=== PATIENT | female | born 1980 | race Caucasian/White ===

== ENCOUNTER 2022-01-02 03:06 | Emergency (ER) | payer SELFPAY ==
[~2022-01-02] VITALS: Ht 165.9 cm; Wt 86.2 kg
[~2022-01-02 03:06] MED LIST: AGM875T PO; CEFP500T4 PO; CIPRO; DICY20TA57; HYDR-34; HYOS0.1216 PO; PHEN-452 PO; PHEN200T27 PO; PRCD5U PO; PRM25T PO; SULF1TAB35 PO; SULF1TAB38 PO; TRAM-21 PO; TRAM50TA2; TRIA16.5 NS; [UNRECOGNIZED DRUG - OTHER]
[2022-01-02 03:50] LABS: BASOPHILS % (AUTO) 1 % (0-10); EOSINOPHILS # (AUTO) 0.1 10^3/uL (0.0-0.3); EOSINOPHILS % (AUTO) 2 % (0-10); HEMATOCRIT 38 % (35-52); HEMOGLOBIN 12.3 g/dL (11.5-16.0); LYMPHOCYTES # (AUTO) 3.2 10^3/uL (1.0-4.0); LYMPHOCYTES % (AUTO) 38 % (12-44); MEAN CORPUSCULAR HEMOGLOBIN 28 pg (25-34); MEAN CORPUSCULAR HGB CONC 33 g/dL (32-36); MEAN CORPUSCULAR VOLUME 88 fL (80-99); MEAN PLATELET VOLUME 9.2 fL (9.0-12.2); MONOCYTES # (AUTO) 0.7 10^3/uL (0.0-1.0); MONOCYTES % (AUTO) 9 % (0-12); NEUTROPHILS # (AUTO) 4.3 10^3/uL (1.8-7.8); NEUTROPHILS % (AUTO) 51 % (42-75); PLATELET COUNT 316 10^3/uL (130-400); WHITE BLOOD COUNT 8.5 10^3/uL (4.3-11.0)
[2022-01-02 03:52] LABS: ALBUMIN 4.2 GM/DL (3.2-4.5); CHLORIDE 106 MMOL/L (98-107); POTASSIUM 3.9 MMOL/L (3.6-5.0); SODIUM 139 MMOL/L (135-145)
[2022-01-02 03:53] LABS: AMYLASE 40 U/L (25-125); CALCIUM 9.2 MG/DL (8.5-10.1)
[2022-01-02 03:53] LABS: BILIRUBIN,URINE NEGATIVE (NEGATIVE); CLARITY,URINE CLEAR; COLOR,URINE YELLOW; GLUCOSE, URINE (UA) NEGATIVE (NEGATIVE); KETONES,URINE NEGATIVE (NEGATIVE); LEUKOCYTE ESTERASE ,URINE NEGATIVE (NEGATIVE); NITRITE,URINE NEGATIVE (NEGATIVE); PH,URINE 5.5 (5-9); PROTEIN,URINE NEGATIVE (NEGATIVE)
[2022-01-02 03:54] LABS: GLUCOSE 99 MG/DL (70-105); TOTAL PROTEIN 7.4 GM/DL (6.4-8.2)
[2022-01-02 03:55] LABS: CARBON DIOXIDE 20 MMOL/L (21-32)
[2022-01-02 03:56] LABS: BILIRUBIN,TOTAL 0.4 MG/DL (0.1-1.0)
[2022-01-02 03:58] LABS: ALKALINE PHOSPHATASE 66 U/L (40-136); CREATININE SERUM 0.67 MG/DL (0.60-1.30); GFR ESTIMATED 114
[2022-01-02 03:59] LABS: BUN/CREATININE RATIO 16
[2022-01-02 04:01] LABS: ALANINE AMINOTRANSFERASE 15 U/L (0-55); MAGNESIUM 1.9 MG/DL (1.6-2.4)
[2022-01-02 04:02] LABS: LIPASE 22 U/L (8-78)
[2022-01-02 04:03] LABS: AMPHETAMINE SCREEN, URINE NEGATIVE (NEGATIVE); BARBITURATE SCREEN URINE NEGATIVE (NEGATIVE); BENZODIAZEPINES SCREEN URINE NEGATIVE (NEGATIVE); CANNABINOID SCREEN, URINE POSITIVE (NEGATIVE); COCAINE SCREEN URINE NEGATIVE (NEGATIVE); METHADONE STAT NEGATIVE (NEGATIVE); METHAMPHETAMINE SCREEN URINE S NEGATIVE (NEGATIVE); OPIATE SCREEN URINE NEGATIVE (NEGATIVE); OXYCODONE STAT NEGATIVE (NEGATIVE); PROPOXYPHENE STAT NEGATIVE (NEGATIVE); TRICYCLIC ANTIDEPRESSANTS SCRE NEGATIVE (NEGATIVE)
[2022-01-02 04:04] LABS: BACTERIA,URINE NEGATIVE /HPF; RBC,URINE >100 /HPF
[2022-01-02] MEDS ORDERED: TRAM-42 PO (06:21)
[2022-01-02] MEDS ORDERED: NAPR500T8 PO (06:21)
--- NOTE | 2022-01-02 06:21 | ED Abdominal Pain ---
General Chief Complaint: Abdominal/GI Problems Stated Complaint: ABD PAIN,CRAMPS Nursing Triage Note: PT AMB TO RM 9 W C/O R SIDED ABD PAIN SX 0000 TONIGHT. 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 Source of Information: Patient Allergies and Home Medications Allergies Coded Allergies: morphine (Unverified Allergy, Mild, 04/23/09) NKANo Known Allergies (Verified Allergy, Unknown, 02/18/06) Patient Home Medication List Amoxicillin/Clavulanate K (Augmentin 875-125 Tablet) 1 Tab Tablet, 1 TAB PO BID, (Reported) Entered as Reported by: FANY MCGILL on 02/01/1255 Cefprozil (Cefzil) 500 Mg Tablet, 1 EACH PO BID Prescribed by: SHRUTHI FUENTES on 02/01/12149 Naproxen (Naproxen) 500 Mg Tablet.dr, 500 MG PO BID Prescribed by: SHRUTHI FUENTES on 01/02/22620 Phentermine Hcl (Phentermine Hcl) 30 Mg Capsule, 1 TAB PO DAILY, (Reported) Entered as Reported by: FANY MCGILL on 02/01/1255 Sulfamethoxazole/Trimethoprim (Bactrim DS) 1 Each Tablet, 1 TAB PO BID Prescribed by: SHRUTHI FUENTES on 04/29/152011 Tramadol HCl (Ultram) 50 Mg Tablet, 50 MG PO Q4H Prescribed by: SHRUTHI FUENTES on 01/02/22620 Triamcinolone Acetonide (Nasacort Aq) 16.5 Gm [place], 16.5 GM NS BID Prescribed by: SHRUTHI FUENTES on 02/01/12149 [Cipro] , (Reported) Entered as Reported by: FANY MCGILL on 02/01/1255 Past Scymbro-Wmkpjz-Olmjpf Hx Patient Social History Tobacco Use?: Yes Tobacco type used: Cigarettes Smoking Status: Current Everyday Smoker Use of E-Cig and/or Vaping dev: No Substance use?: Yes Substance type: Marijuana Additional substance use comme: "EDIBLES" Alcohol Use?: Yes Alcohol Frequency: Once in a while Immunizations Up To Date Tetanus Booster (TDap): Less than 5yrs Influenza Vaccine Up-to-Date: No; Not Current First/Initial COVID19 Vaccinat: NONE Second COVID19 Vaccination Kris: NONE Third COVID19 Vaccination Date: NONE COVID19 Vaccine Motel Front Desk Attendant: NONE Past Medical History Bladder Surgery, Gallbladder, Tubal Ligation Last Menstrual Period: Dec 28, 2021 Reproductive Disorders: Yes (MISCARRIAGE X1) Irritable Bowel Chronic Back Pain Physical Exam Vital Signs Vital Signs - First Documented 01/02/22 03:17 Temp 36.0 Pulse 87 Resp 20 B/P (MAP) 138/82 (100) Pulse Ox 97 O2 Delivery Room Air Capillary Refill : Less Than 3 Seconds Height/Weight/BMI Height: 5'1" Weight: 192lbs. oz. 87.008159ox; 31.00 BMI Method:Stated Progress/Results/Core Measures Results/Orders Lab Results Laboratory Tests Test 01/02/22 03:20 01/02/22 03:30 Range/Units Urine Color YELLOW Urine Clarity CLEAR Urine pH 5.5 5-9 Urine Specific [place] 1.025 H 1.016-1.022 Urine Protein NEGATIVE NEGATIVE Urine Glucose (UA) NEGATIVE NEGATIVE Urine Ketones NEGATIVE NEGATIVE Urine Nitrite NEGATIVE NEGATIVE Urine Bilirubin NEGATIVE NEGATIVE Urine Urobilinogen 0.2 < = 1.0 MG/DL Urine Leukocyte Esterase NEGATIVE NEGATIVE Urine RBC (Auto) 3+ H NEGATIVE Urine RBC >100 H /HPF Urine WBC NONE /HPF Urine Squamous Epithelial Cells 2-5 /HPF Urine Crystals NONE /LPF Urine Bacteria NEGATIVE /HPF Urine Casts NONE /LPF Urine Mucus MODERATE H /LPF Urine Culture Indicated NO Urine Opiates Screen NEGATIVE NEGATIVE Urine Oxycodone Screen NEGATIVE NEGATIVE Urine Methadone Screen NEGATIVE NEGATIVE Urine Propoxyphene Screen NEGATIVE NEGATIVE Urine Barbiturates Screen NEGATIVE NEGATIVE Ur Tricyclic Antidepressants Screen NEGATIVE NEGATIVE Urine Phencyclidine Screen NEGATIVE NEGATIVE Urine Amphetamines Screen NEGATIVE NEGATIVE Urine Methamphetamines Screen NEGATIVE NEGATIVE Urine Benzodiazepines Screen NEGATIVE NEGATIVE Urine Cocaine Screen NEGATIVE NEGATIVE Urine Cannabinoids Screen POSITIVE H NEGATIVE White Blood Count 8.5 4.3-11.0 10^3/uL Red Blood Count 4.33 3.80-5.11 10^6/uL Hemoglobin 12.3 11.5-16.0 g/dL Hematocrit 38 35-52 % Mean Corpuscular Volume 88 80-99 fL Mean Corpuscular Hemoglobin 28 25-34 pg Mean Corpuscular Hemoglobin Concent 33 32-36 g/dL Red Cell Distribution Width 13.7 10.0-14.5 % Platelet Count 316 130-400 10^3/uL Mean Platelet Volume 9.2 9.0-12.2 fL Immature Granulocyte % (Auto) 0 % Neutrophils (%) (Auto) 51 42-75 % Lymphocytes (%) (Auto) 38 12-44 % Monocytes (%) (Auto) 9 0-12 % Eosinophils (%) (Auto) 2 0-10 % Basophils (%) (Auto) 1 0-10 % Neutrophils # (Auto) 4.3 1.8-7.8 10^3/uL Lymphocytes # (Auto) 3.2 1.0-4.0 10^3/uL Monocytes # (Auto) 0.7 0.0-1.0 10^3/uL Eosinophils # (Auto) 0.1 0.0-0.3 10^3/uL Basophils # (Auto) 0.0 0.0-0.1 10^3/uL Immature Granulocyte # (Auto) 0.0 0.0-0.1 10^3/uL Sodium Level 139 135-145 MMOL/L Potassium Level 3.9 3.6-5.0 MMOL/L Chloride Level 106 98-107 MMOL/L Carbon Dioxide Level 20 L 21-32 MMOL/L Anion Gap 13 5-14 MMOL/L Blood Urea Nitrogen 11 7-18 MG/DL Creatinine 0.67 0.60-1.30 MG/DL Estimat Glomerular Filtration Rate 114 BUN/Creatinine Ratio 16 Glucose Level 99 70-105 MG/DL Calcium Level 9.2 8.5-10.1 MG/DL Corrected Calcium 9.0 8.5-10.1 MG/DL Magnesium Level 1.9 1.6-2.4 MG/DL Total Bilirubin 0.4 0.1-1.0 MG/DL Aspartate Amino Transf (AST/SGOT) 14 5-34 U/L Alanine Aminotransferase (ALT/SGPT) 15 0-55 U/L Alkaline Phosphatase 66 40-136 U/L Total Protein 7.4 6.4-8.2 GM/DL Albumin 4.2 3.2-4.5 GM/DL Amylase Level 40 25-125 U/L Lipase 22 8-78 U/L Serum Alcohol < 10 <10 MG/DL My Orders Orders - SHRUTHI FUENTES DO Ed Iv/Invasive Line Start (01/02/22 03:43) Urine Bedside (01/02/22 03:43) Monitor-Rhythm Ecg Trace Only (01/02/22 03:43) Alcohol (01/02/22 03:43) Amylase (01/02/22 03:43) Cbc With Automated Diff (01/02/22 03:43) Comprehensive Metabolic Panel (01/02/22 03:43) Drug Screen Stat (Urine) (01/02/22 03:43) Lipase (01/02/22 03:43) Magnesium (01/02/22 03:43) Ua Culture If Indicated (01/02/22 03:43) Ct Abd/Pelvis Wo(Kidney Stone) (01/02/22 03:51) Abdomen/Kub 1[place] (01/02/22 03:51) Vital Signs/I&O 01/02/22 03:17 Temp 36.0 Pulse 87 Resp 20 B/P (MAP) 138/82 (100) Pulse Ox 97 O2 Delivery Room Air Blood Pressure Mean: 100 Progress Progress Note : Progress Note SLEPT SOUNDLY FOR REMAINDER OF ER STAY Departure Impression Primary Impression: RLQ abdominal pain Additional Impressions: chronic dysmenorrhea chronic menorrhagia Uterine fibroid Disposition: HOME, SELF-CARE Condition: Stable Departure-Patient Inst. Decision time for Depature: 06:15 Referrals: [facility] (PCP/Family) Primary Care Physician Patient Instructions: Abdominal Pain, Adult ED, Heavy Periods (DC), Menstrual Cramps (DC), Uterine Fibroids (DC) Add. Discharge Instructions: HOME, REST LOTS OF CLEAR LIQUIDS FOLLOW UP WITH REACTOR KETTLE OPERATOR NEXT WEEK SCHEDULED All discharge instructions reviewed with patient and/or family. Voiced understanding. Scripts Naproxen (Naproxen) 500 Mg Tablet. 500 MG PO BID, #20 TAB Prov: SHRUTHI FUENTES DO 01/02/22 Tramadol HCl (Ultram) 50 Mg Tablet 50 MG PO Q4H for Pain, #20 TAB Prov: SHRUTHI FUENTES DO 01/02/22 SHRUTHI FUENTES DO Jan 02, 2022 06:21
--- NOTE | 2022-01-02 06:31 | Diagnostic Imaging Report ---
PROCEDURE: CT urinary tract, rule out kidney stone. TECHNIQUE: Multiple contiguous axial images were obtained through the abdomen and pelvis without the use of intravenous contrast. Auto Exposure Controls were utilized during the CT exam to meet ALARA standards for radiation dose reduction. INDICATION: Abdominal pain. FINDINGS: Lung bases are clear. The kidneys show no renal calculi. There is no hydronephrosis. Renal outlines are smooth with no perinephric fluid. The ureters are not dilated. The bladder is empty. No stones are seen within the bladder. Uterus is mildly enlarged. Very little stool seen in the colon though there is no evidence of obstructive process. No changes are seen to suggest inflammatory bowel disease. The appendix is normal. Stomach and small bowel are not distended. There is no intra-abdominal adenopathy. No free air or free fluid. Liver is normal. Gallbladder is absent. Bile ducts are not dilated. Pancreas and spleen are normal. The adrenal glands are not enlarged. No bony lesions. IMPRESSION: No acute intra-abdominal findings demonstrated. Uterus is mildly prominent. Would consider nonemergent pelvic ultrasound. The uterus does appear to have increased in size when compared with previous CT scan of 12/08/2010. Dictated by: Dictated on workstation # [id number]
[2022-01-02 06:32] VITALS: BP 123/76
--- NOTE | 2022-01-02 06:36 | Diagnostic Imaging Report ---
INDICATION: Abdominal pain. COMPARISON: CT scan of 01/02/2022. FINDINGS: KUB. Bowel gas pattern is normal. There is no evidence of bowel obstruction or constipation. There are surgical clips in the biliary fossa. Multiple phleboliths in the pelvis. No other pathologic calcifications noted. No bony abnormalities. IMPRESSION: No acute abnormalities. Dictated by: Dictated on workstation # [id number]
== END 2022-01-02 06:32 | disposition home or self-care (01) ==
LOC: EDUNIT# 03:06 → ER 03:10
DX: D25.9 Leiomyoma of uterus, unspecified (principal); N94.6 Dysmenorrhea, unspecified; N92.0 Excessive and frequent menstruation with regular cycle; F17.210 Nicotine dependence, cigarettes, uncomplicated
CPT/HCPCS: 74018; 74176; 80053; 80306; 81000; 82150; 83690; 83735; 84703; 85025; 93041; 99284; G0480; 36415; 80320

== ENCOUNTER 2022-04-25 23:43 | Observation (INO) | payer SELFPAY ==
[~2022-04-25] VITALS: Ht 154.9 cm; Wt 77.0 kg
[~2022-04-25 23:43] MED LIST changes: +NAPR500T8 PO; +TRAM-42 PO
--- NOTE | 2022-04-25 23:48 | ED General ---
General Stated Complaint: OVERDOSE History of Present Illness Date Seen by Provider: Apr 25, 2022 Time Seen by Provider: 23:48 Initial Comments 41-year-old female with PMH of depression/anxiety/prior suicide attempt in 2005, is brought in by EMS with complaints of overdosing on 40 tablets of Excedrin today 2199. Patient had suicidal ideation due to the extreme depression. Patient is not on medication for depression. Patient's was home at the time but did not know that she had done this until she told her much later. Patient is extremely anxious and depressed. Denies fever, chest pain, shortness of breath, palpitations, abdominal pain. Patient is vomiting. Patient received activated charcoal in the ambulance by EMS, after EMS called poison control. Allergies and Home Medications Allergies Coded Allergies: morphine (Unverified Allergy, Mild, 04/23/09) NKANo Known Allergies (Verified Allergy, Unknown, 02/18/06) Patient Home Medication List Home Medication List Reviewed: Yes Amoxicillin/Clavulanate K (Augmentin 875-125 Tablet) 1 Tab Tablet, 1 TAB PO BID, (Reported) Entered as Reported by: FANY MCGILL on 02/01/1255 Cefprozil (Cefzil) 500 Mg Tablet, 1 EACH PO BID Prescribed by: SHRUTHI FUENTES on 02/01/12149 Naproxen (Naproxen) 500 Mg Tablet.dr, 500 MG PO BID Prescribed by: SHRUTHI FUENTES on 01/02/22620 Phentermine Hcl (Phentermine Hcl) 30 Mg Capsule, 1 TAB PO DAILY, (Reported) Entered as Reported by: FANY MCGILL on 02/01/1255 Sulfamethoxazole/Trimethoprim (Bactrim DS) 1 Each Tablet, 1 TAB PO BID Prescribed by: SHRUTHI FUENTES on 04/29/152011 Tramadol HCl (Ultram) 50 Mg Tablet, 50 MG PO Q4H Prescribed by: SHRUTHI FUENTES on 01/02/22620 Triamcinolone Acetonide (Nasacort Aq) 16.5 Gm [place], 16.5 GM NS BID Prescribed by: SHRUTHI FUENTES on 02/01/12149 [Cipro] , (Reported) Entered as Reported by: FANY MCGILL on 02/01/1255 Review of Systems Review of Systems Constitutional: no symptoms reported EENTM: no symptoms reported Respiratory: no symptoms reported Cardiovascular: no symptoms reported Gastrointestinal: nausea, vomiting, other (overdose) Genitourinary: no symptoms reported Musculoskeletal: no symptoms reported Skin: no symptoms reported Psychiatric/Neurological: Anxiety, Depressed, Emotional Problems Hematologic/Lymphatic: No Symptoms Reported Immunological/Allergic: no symptoms reported Past Vcjkags-Inrtfa-Vvutiu Hx Immunizations Up To Date Tetanus Booster (TDap): Less than 5yrs First/Initial COVID19 Vaccinat: NONE Second COVID19 Vaccination Kris: NONE Third COVID19 Vaccination Date: NONE Past Medical History Surgeries: Yes (URETHRAL DILATION CHILD; CERVICAL CONIZATION) Bladder Surgery, Gallbladder, Tubal Ligation Respiratory: No Cardiac: No Neurological: No Reproductive Disorders: Yes (MISCARRIAGE X1) Genitourinary: No Gastrointestinal: Yes Irritable Bowel Musculoskeletal: Yes Chronic Back Pain Endocrine: No HEENT: No Cancer: No Psychosocial: No (CERVICAL DYSPLASIA--S/P CERVICAL CONIZATION) Physical Exam Vital Signs Vital Signs - First Documented 04/25/22 23:56 Temp 36.1 Pulse 117 Resp 26 B/P (MAP) 99/78 (85) Pulse Ox 96 O2 Delivery Room Air Capillary Refill : Height, Weight, BMI Height: 5'1" Weight: 192lbs. oz. 87.552101gx; 31.00 BMI Method:Stated General Appearance: Anxious, Moderate Distress Eyes: Bilateral Eye Normal Inspection, Bilateral Eye PERRL, Bilateral Eye EOMI HEENT: PERRL/EOMI, Normal ENT Inspection, Pharynx Normal Neck: Full Range of Motion, Normal Inspection, Non Tender, Supple Respiratory: Chest Non Tender, Lungs Clear, Normal Breath Sounds Cardiovascular: No Edema, No Murmur, Tachycardia (borderline) Gastrointestinal: Normal Bowel Sounds, Non Tender, Soft Back: Normal Inspection, No CVA Tenderness, No Vertebral Tenderness Extremity: Normal Inspection, Normal Range of Motion Neurologic/Psychiatric: Alert, Oriented x3, No Motor/Sensory Deficits, Normal Mood/Affect Skin: Normal Color Lymphatic: No Adenopathy Progress/Results/Core Measures Suspected Sepsis SIRS Temperature: Pulse: Respiratory Rate: Laboratory Tests 04/25/22 23:50: White Blood Count 8.9 04/26/22 02:08: White Blood Count 12.9H Blood Pressure / Mean: Laboratory Tests 04/25/22 23:50: Creatinine 0.82, Platelet Count 271, Total Bilirubin 0.3 04/26/22 02:08: Creatinine 0.69, Platelet Count 250 Results/Orders Lab Results Laboratory Tests Test 04/25/22 23:50 04/26/22 00:49 04/26/22 02:08 Range/Units White Blood Count 8.9 12.9 H 4.3-11.0 10^3/uL Red Blood Count 4.58 4.13 3.80-5.11 10^6/uL Hemoglobin 11.2 L 10.4 L 11.5-16.0 g/dL Hematocrit 36 33 L 35-52 % Mean Corpuscular Volume 80 79 L 80-99 fL Mean Corpuscular Hemoglobin 25 25 25-34 pg Mean Corpuscular Hemoglobin Concent 31 L 32 32-36 g/dL Red Cell Distribution Width 17.2 H 17.0 H 10.0-14.5 % Platelet Count 271 250 130-400 10^3/uL Mean Platelet Volume 9.1 9.2 9.0-12.2 fL Immature Granulocyte % (Auto) 0 0 % Neutrophils (%) (Auto) 70 89 H 42-75 % Lymphocytes (%) (Auto) 21 6 L 12-44 % Monocytes (%) (Auto) 9 5 0-12 % Eosinophils (%) (Auto) 1 0 0-10 % Basophils (%) (Auto) 0 0 0-10 % Neutrophils # (Auto) 6.2 11.5 H 1.8-7.8 10^3/uL Lymphocytes # (Auto) 1.9 0.7 L 1.0-4.0 10^3/uL Monocytes # (Auto) 0.8 0.6 0.0-1.0 10^3/uL Eosinophils # (Auto) 0.1 0.0 0.0-0.3 10^3/uL Basophils # (Auto) 0.0 0.0 0.0-0.1 10^3/uL Immature Granulocyte # (Auto) 0.0 0.1 0.0-0.1 10^3/uL Sodium Level 140 141 135-145 MMOL/L Potassium Level 3.3 L 3.7 3.6-5.0 MMOL/L Chloride Level 107 112 H 98-107 MMOL/L Carbon Dioxide Level 15 L 17 L 21-32 MMOL/L Anion Gap 18 H 12 5-14 MMOL/L Blood Urea Nitrogen 8 7 7-18 MG/DL Creatinine 0.82 0.69 0.60-1.30 MG/DL Estimat Glomerular Filtration Rate 93 113 BUN/Creatinine Ratio 10 10 Glucose Level 187 H 103 70-105 MG/DL Calcium Level 9.2 8.3 L 8.5-10.1 MG/DL Corrected Calcium 9.0 8.5-10.1 MG/DL Magnesium Level 1.9 1.6-2.4 MG/DL Total Bilirubin 0.3 0.1-1.0 MG/DL Aspartate Amino Transf (AST/SGOT) 10 5-34 U/L Alanine Aminotransferase (ALT/SGPT) 14 0-55 U/L Alkaline Phosphatase 54 40-136 U/L Total Protein 7.1 6.4-8.2 GM/DL Albumin 4.3 3.2-4.5 GM/DL Serum Test, Qualitative NEGATIVE NEGATIVE Salicylates Level 33.1 *H 31.7 *H 5.0-20.0 MG/DL Acetaminophen Level 101 *H 67 #*H 10-30 UG/ML Serum Alcohol < 10 <10 MG/DL Urine Color YELLOW Urine Clarity CLEAR Urine pH 6.0 5-9 Urine Specific [place] >=1.030 1.016-1.022 Urine Protein TRACE H NEGATIVE Urine Glucose (UA) 1+ H NEGATIVE Urine Ketones 1+ H NEGATIVE Urine Nitrite NEGATIVE NEGATIVE Urine Bilirubin NEGATIVE NEGATIVE Urine Urobilinogen 0.2 < = 1.0 MG/DL Urine Leukocyte Esterase NEGATIVE NEGATIVE Urine RBC (Auto) NEGATIVE NEGATIVE Urine RBC NONE /HPF Urine WBC 0-2 /HPF Urine Squamous Epithelial Cells 2-5 /HPF Urine Crystals NONE /LPF Urine Bacteria NEGATIVE /HPF Urine Casts PRESENT /LPF Urine Hyaline Casts 0-2 H /LPF Urine Mucus NEGATIVE /LPF Urine Culture Indicated NO Urine Opiates Screen NEGATIVE NEGATIVE Urine Oxycodone Screen NEGATIVE NEGATIVE Urine Methadone Screen NEGATIVE NEGATIVE Urine Propoxyphene Screen NEGATIVE NEGATIVE Urine Barbiturates Screen NEGATIVE NEGATIVE Ur Tricyclic Antidepressants Screen NEGATIVE NEGATIVE Urine Phencyclidine Screen NEGATIVE NEGATIVE Urine Amphetamines Screen NEGATIVE NEGATIVE Urine Methamphetamines Screen NEGATIVE NEGATIVE Urine Benzodiazepines Screen NEGATIVE NEGATIVE Urine Cocaine Screen NEGATIVE NEGATIVE Urine Cannabinoids Screen POSITIVE H NEGATIVE Neutrophils % (Manual) 89 % Lymphocytes % (Manual) 6 % Monocytes % (Manual) 5 % Microcytosis SLIGHT My Orders Orders - KAREN STEVE MD Ekg Tracing (04/25/22 23:51) Ed Iv/Invasive Line Start (04/25/22 23:54) Ns Iv 1000 Ml (Sodium Chloride 0.9%) (04/26/22 00:00) Acetaminophen (04/25/22 23:54) Alcohol (04/25/22 23:54) Cbc With Automated Diff (04/25/22 23:54) Comprehensive Metabolic Panel (04/25/22 23:54) Drug Screen Stat (Urine) (04/25/22 23:54) Hcg,Qualitative Serum (04/25/22 23:54) Magnesium (04/25/22 23:54) Salicylate (04/25/22 23:54) Ua Culture If Indicated (04/25/22 23:54) Chest 1 View, Ap/Pa Only (04/26/22 00:01) Potassium Cl 10meq/50ml Ivpb (Kcl 10 Meq (04/26/22 00:24) Ondansetron Injection (Zofran Injectio (04/26/22 01:45) Basic Metabolic Panel (04/26/22 01:57) Cbc With Automated Diff (04/26/22 01:57) Salicylate (04/26/22 01:57) Acetaminophen (04/26/22 01:57) Manual Differential (04/26/22 02:08) Protime With Inr (04/26/22 03:09) Ed Iv/Invasive Line Start (04/26/22 03:10) Ns Iv 1000 Ml (Sodium Chloride 0.9%) (04/26/22 03:10) Medications Given in ED Current Medications Medications Dose Ordered Sig/Jeff Route Start Time Stop Time Status Last Admin Dose Admin Ondansetron HCl 4 mg ONCE ONCE IVP 04/26/22 01:45 04/26/22 01:46 DC 04/26/22 01:44 4 MG Vital Signs/I&O 04/25/22 04/26/22 04/26/22 23:56 02:10 03:07 Temp 36.1 36.7 Pulse 117 76 72 Resp 26 18 19 B/P (MAP) 99/78 (85) 96/67 97/60 Pulse Ox 96 98 98 O2 Delivery Room Air Room Air 04/26/22 00:00 Intake Total 500 ml Balance 500 ml Capillary Refill : Progress Note : Progress Note 1. DRUG OVERDOSE/ SUICIDAL IDEATION: - Pt took 40 tabs of Excedrin at 22:00 ( Acetaminophen 250mg/ ASA 250mg/ Caffeine 65mg) - EMS called Poison Control and Poison Control has been contacting ER every hour - Activated charcoal given in ambulance as per Poison control advice - ABG x2 - EKH normal - AST/ ALT levels normal - PT & INR: - Salicylate level improved from 33.1 to 31.7 ( Bicarb drip only needed if Salicylate level goes above 35) - Acetaminophen level improved from 101 to 67 - UDS is also positive for marijuana - NS IVF bolus x1 , then 2nd bag contuous at 200/hr - Discussed with hospitalist, Dr Miller, and will admit to observation in ICU, and obtain e-ICU consult 2. MILD HYPOKALEMIA: - s. K+ is 3.3, iv potassium is given 20mEq, and level improved to 3.7 ECG Initial ECG Impression Date: Apr 25, 2022 Initial ECG Impression Time: 23:55 Initial ECG Rate: 102 Initial ECG Rhythm: S.Tach Initial ECG Intervals: Normal Initial ECG Comparisson: No Previous ECG Available Departure Communication (Admissions) Time/Spoke to Admitting Phy: 03:[address] Miller, will admit for Observation to ICU Impression Primary Impression: Drug overdose Qualified Codes: T50.902A - Poisoning by unspecified drugs, medicaments and biological substances, intentional self-harm, initial encounter Additional Impressions: Suicidal ideation Hypokalemia Disposition: 30 STILL A PATIENT Condition: Improved Admissions Decision to Admit Reason: Admit from ER (General) Decision to Admit/Date: Apr 26, 2022 Time/Decision to Admit Time: 02:45 Departure-Patient Inst. Referrals: [facility] (PCP/Family) Primary Care Physician KAREN STEVE MD Apr 25, 2022 23:48
[2022-04-26] MEDS ORDERED: NS IV 1000 ML 1,000 ML IV SCH
[2022-04-26 00:10] LABS: BASOPHILS % (AUTO) 0 % (0-10); EOSINOPHILS # (AUTO) 0.1 10^3/uL (0.0-0.3); EOSINOPHILS % (AUTO) 1 % (0-10); HEMATOCRIT 36 % (35-52); HEMOGLOBIN 11.2 g/dL (11.5-16.0); LYMPHOCYTES # (AUTO) 1.9 10^3/uL (1.0-4.0); LYMPHOCYTES % (AUTO) 21 % (12-44); MEAN CORPUSCULAR HEMOGLOBIN 25 pg (25-34); MEAN CORPUSCULAR HGB CONC 31 g/dL (32-36); MEAN CORPUSCULAR VOLUME 80 fL (80-99); MEAN PLATELET VOLUME 9.1 fL (9.0-12.2); MONOCYTES # (AUTO) 0.8 10^3/uL (0.0-1.0); MONOCYTES % (AUTO) 9 % (0-12); NEUTROPHILS # (AUTO) 6.2 10^3/uL (1.8-7.8); NEUTROPHILS % (AUTO) 70 % (42-75); PLATELET COUNT 271 10^3/uL (130-400); WHITE BLOOD COUNT 8.9 10^3/uL (4.3-11.0)
[2022-04-26 00:22] LABS: ALBUMIN 4.3 GM/DL (3.2-4.5); CHLORIDE 107 MMOL/L (98-107); POTASSIUM 3.3 MMOL/L (3.6-5.0); SODIUM 140 MMOL/L (135-145)
[2022-04-26 00:24] LABS: CALCIUM 9.2 MG/DL (8.5-10.1)
[2022-04-26] MEDS ORDERED: POTASSIUM CL 10MEQ/50ML IVPB 50 ML IV STA (00:24)
[2022-04-26 00:25] LABS: GLUCOSE 187 MG/DL (70-105); TOTAL PROTEIN 7.1 GM/DL (6.4-8.2)
[2022-04-26 00:26] LABS: CARBON DIOXIDE 15 MMOL/L (21-32)
[2022-04-26 00:27] LABS: BILIRUBIN,TOTAL 0.3 MG/DL (0.1-1.0)
[2022-04-26 00:29] LABS: ALKALINE PHOSPHATASE 54 U/L (40-136); CREATININE SERUM 0.82 MG/DL (0.60-1.30); GFR ESTIMATED 93
[2022-04-26 00:30] LABS: BUN/CREATININE RATIO 10
[2022-04-26 00:32] LABS: ALANINE AMINOTRANSFERASE 14 U/L (0-55); MAGNESIUM 1.9 MG/DL (1.6-2.4)
[2022-04-26 00:35] LABS: ACETAMINOPHEN 101 UG/ML (10-30); SALICYLATE 33.1 MG/DL (5.0-20.0)
[2022-04-26 00:57] LABS: BILIRUBIN,URINE NEGATIVE (NEGATIVE); CLARITY,URINE CLEAR; COLOR,URINE YELLOW; GLUCOSE, URINE (UA) 1+ (NEGATIVE); KETONES,URINE 1+ (NEGATIVE); LEUKOCYTE ESTERASE ,URINE NEGATIVE (NEGATIVE); NITRITE,URINE NEGATIVE (NEGATIVE); PROTEIN,URINE TRACE (NEGATIVE)
[2022-04-26 01:08] LABS: BACTERIA,URINE NEGATIVE /HPF; HYALINE CASTS, URINE 0-2 /LPF; WBC,URINE 0-2 /HPF
[2022-04-26 01:27] LABS: AMPHETAMINE SCREEN, URINE NEGATIVE (NEGATIVE); BARBITURATE SCREEN URINE NEGATIVE (NEGATIVE); BENZODIAZEPINES SCREEN URINE NEGATIVE (NEGATIVE); CANNABINOID SCREEN, URINE POSITIVE (NEGATIVE); COCAINE SCREEN URINE NEGATIVE (NEGATIVE); METHADONE STAT NEGATIVE (NEGATIVE); OPIATE SCREEN URINE NEGATIVE (NEGATIVE); OXYCODONE STAT NEGATIVE (NEGATIVE); PROPOXYPHENE STAT NEGATIVE (NEGATIVE); TRICYCLIC ANTIDEPRESSANTS SCRE NEGATIVE (NEGATIVE)
[2022-04-26] MEDS ORDERED: ONDANSETRON 4 MG/2 ML (SDV) Z0FRAN IVP ONE (01:45)
[2022-04-26 02:22] LABS: BASOPHILS % (AUTO) 0 % (0-10); EOSINOPHILS % (AUTO) 0 % (0-10); HEMATOCRIT 33 % (35-52); HEMOGLOBIN 10.4 g/dL (11.5-16.0); LYMPHOCYTES # (AUTO) 0.7 10^3/uL (1.0-4.0); LYMPHOCYTES % (AUTO) 6 % (12-44); MEAN CORPUSCULAR HEMOGLOBIN 25 pg (25-34); MEAN CORPUSCULAR HGB CONC 32 g/dL (32-36); MEAN CORPUSCULAR VOLUME 79 fL (80-99); MEAN PLATELET VOLUME 9.2 fL (9.0-12.2); MONOCYTES # (AUTO) 0.6 10^3/uL (0.0-1.0); MONOCYTES % (AUTO) 5 % (0-12); NEUTROPHILS # (AUTO) 11.5 10^3/uL (1.8-7.8); NEUTROPHILS % (AUTO) 89 % (42-75); PLATELET COUNT 250 10^3/uL (130-400); WHITE BLOOD COUNT 12.9 10^3/uL (4.3-11.0)
[2022-04-26 02:29] LABS: POTASSIUM 3.7 MMOL/L (3.6-5.0)
[2022-04-26 02:30] LABS: CALCIUM 8.3 MG/DL (8.5-10.1)
[2022-04-26 02:35] LABS: CREATININE SERUM 0.69 MG/DL (0.60-1.30)
[2022-04-26 02:40] LABS: SALICYLATE 31.7 MG/DL (5.0-20.0)
[2022-04-26 03:10] LABS: LYMPHOCYTES % (MANUAL) 6 %; MICROCYTOSIS SLIGHT; MONOCYTES % (MANUAL) 5 %; NEUTROPHILS % (MANUAL) 89 %
[2022-04-26] MEDS ORDERED: NS IV 1000 ML 1,000 ML IV STA (03:10)
[2022-04-26 05:08] VITALS: BP 111/65
--- NOTE | 2022-04-26 05:27 | Tele-ICU Consult ---
History of Present Illness History of Present Illness Date Seen by Provider: Apr 26, 2022 Time Seen by Provider: 05:16 History of Present Illness 41 yo F with Hx of depression, took Excedrinin, "after a few hours" came to ED, Had been given activated charcoal by EMT First ASA level 33, two hours later 31, First Tylenol level 101, two hours later 67, Poison control did not recommend NAC. First ABG 7.36//85 HCO3 16, second ABG 2 hours later 7.43//102 Pt is awake and alert, not working hard to breathe,appears depressed Allergies and Home Medications Allergies Coded Allergies: morphine (Unverified Allergy, Mild, 04/23/09) NKANo Known Allergies (Verified Allergy, Unknown, 02/18/06) Home Medications Amoxicillin/Clavulanate K 1 Tab Tablet, 1 TAB PO BID, (Reported) Cefprozil 500 Mg Tablet, 1 EACH PO BID FOR INFECTION Prescribed by: SHRUTHI FUENTES on 02/01/12149 Naproxen 500 Mg Tablet.dr, 500 MG PO BID Prescribed by: SHRUTHI FUENTES on 01/02/22620 Phentermine Hcl 30 Mg Capsule, 1 TAB PO DAILY, (Reported) Sulfamethoxazole/Trimethoprim 1 Each Tablet, 1 TAB PO BID FOR INFECTION Prescribed by: SHRUTHI FUENTES on 04/29/152011 Tramadol HCl 50 Mg Tablet, 50 MG PO Q4H Prescribed by: SHRUTHI FUENTES on 01/02/22620 Triamcinolone Acetonide 16.5 Gm [place], 16.5 GM NS BID FOR SINUSES Prescribed by: SHRUTHI FUENTES on 02/01/12149 Past Medical/Social/Family Hx Patient Social History Tobacco Use?: Yes Tobacco type used: Cigarettes Smoking Status: Current Everyday Smoker Substance use?: No Alcohol Use?: No Pt stated abuse/neglect: No Immunizations Up To Date Influenza Vaccine Up-to-Date: No; Not Current First/Initial COVID19 Vaccinat: NONE Second COVID19 Vaccination Kris: NONE Tetanus Booster (TDap): Unknown Current Status status: No status: No Advance Directives: No Primary Language: Hungarian Preferred Spoken Language: Hungarian Review of Systems Constitutional: see HPI EENTM: see HPI Respiratory: see HPI Cardiovascular: see HPI Gastrointestinal: see HPI Genitourinary: see HPI Musculoskeletal: see HPI Skin: see HPI Psychiatric/Neurological: See HPI Focused Exam Height, Weight, BMI Height: 5'1" Weight: 192lbs. oz. 87.599422is; 31.00 BMI Method:Stated Exam Exam Patient acknowledged, consented, and participated in this virtual visit which was conducted using real time audio/video Vital Signs Date Time Temp Pulse Resp B/P (MAP) Pulse Ox O2 Delivery O2 Flow Rate FiO2 04/26/22 04:29 70 04/26/22 04:28 36.5 91 18 111/65 96 Room Air 04/26/22 03:07 72 19 97/60 98 04/26/22 02:10 36.7 76 18 96/67 98 Room Air 04/25/22 23:56 36.1 117 26 99/78 (85) 96 Room Air I & O 04/26/22 07:00 Intake Total 550 ml Balance 550 ml Height & Weight Height: 5'1" Weight: 192lbs. oz. 87.728078ud; 31.00 BMI Method:Stated General Appearance: Anxious, Moderate Distress HEENT: PERRL/EOMI, Normal ENT Inspection, Pharynx Normal Neck: Full Range of Motion, Normal Inspection, Non Tender, Supple Respiratory: Chest Non Tender, Lungs Clear, Normal Breath Sounds Cardiovascular: No Edema, No Murmur, Tachycardia (borderline) Capillary Refill: Less Than 3 Seconds Gastrointestinal: normal bowel sounds, non tender, soft Extremity: Normal Inspection, Normal Range of Motion Neurologic/Psychiatric: Alert, Oriented x3, No Motor/Sensory Deficits, Normal Mood/Affect Skin: Normal Color Lymphatic: No Adenopathy Results Lab Laboratory Tests 04/25/22 23:50 04/26/22 02:08 Assessment/Plan Assessment/Plan Suicide attempt with ASA, Tylenol, levels not high enough to justify IV NaHCO3 or NAC will continue IVF should have psych see Critical Care: Critically Ill Patient Time spent with patient (mins): 30 LOR JOHNSON MD Apr 26, 2022 05:27
[2022-04-26] MEDS ORDERED: RT-ALBUTEROL/IPRATROPIUM 3 ML (DUONEB) VIAL INH PRN (05:30)
[2022-04-26] MEDS: ONDANSETRON 4 MG/2 ML (SDV) Z0FRAN IV PRN ×2 (05:30→09:20)
--- NOTE | 2022-04-26 06:17 | History & Physical-Hospitalist ---
History of Present Illness HPI/Chief Complaint CC: Overdose on Excedrin HPI: This is a 41yoF who presented to the ER after overdosing on 30 Excedrin pills. Salicylate and Acetaminophen levels monitored per Poison Control with IV fluids and ICU monitoring. Those levels are decreasing and liver enzymes remain stable. Source: patient Exam Limitations: no limitations Date Seen 04/26/22 Time Seen by a Provider: 10:30 Attending Physician [place] [facility] PCP Admitting Physician: Selma Miller DO Attending Physician: Selma Miller DO Referring Physician Date of Admission Apr 26, 2022 at 03:21 Home Medications & Allergies Home Medications Reviewed patient Home Medication Reconciliation performed by pharmacy medication reconciliations compliance technician and/or nursing. Patients Allergies have been reviewed. Allergies Allergies Coded Allergies morphine (Unverified Allergy, Mild, 04/23/09) Past Qtvlwud-Jnigsv-Aliwzo Hx Patient Social History Marrital Status: cohabiting Tobacco Use?: Yes Tobacco type used: Cigarettes Smoking Status: Current Everyday Smoker Substance use?: No Alcohol Use?: No Pt feels they are or have been: No Immunizations Up To Date First/Initial COVID19 Vaccinat: NONE Second COVID19 Vaccination Kris: NONE Tetanus Booster (TDap): Unknown Current Status status: No status: No Advance Directives: No Primary Language: Pakistani Preferred Spoken Language: Pakistani Past Medical History Surgeries: Bladder Surgery, Gallbladder, Tubal Ligation Irritable Bowel Chronic Back Pain Depression Review of Systems Constitutional: see HPI, malaise, weakness EENTM: no symptoms reported Respiratory: no symptoms reported Cardiovascular: no symptoms reported Gastrointestinal: nausea, vomiting Musculoskeletal: no symptoms reported Skin: no symptoms reported Psychiatric/Neurological: No Symptoms Reported All Other Systems Reviewed Negative Unless Noted: Yes Physical Exam Physical Exam Vital Signs Vital Signs - First Documented 04/25/22 04/26/22 23:56 05:08 Temp 36.1 Pulse 117 Resp 26 B/P (MAP) 99/78 (85) Pulse Ox 96 O2 Delivery Room Air FiO2 21 Capillary Refill : Less Than 3 Seconds Height, Weight, BMI Height: 5'1" Weight: 192lbs. oz. 87.701189ci; 32.29 BMI Method:Stated General Appearance: No Apparent Distress, Chronically ill Eyes: Right Eye Normal Inspection, Right Eye PERRL HEENT: PERRL/EOMI, Normal ENT Inspection, Pharynx Normal, Moist Mucous Membranes Neck: Full Range of Motion, Normal Inspection, Non Tender Respiratory: Chest Non Tender, Lungs Clear, Normal Breath Sounds, No Accessory Muscle Use, No Respiratory Distress Cardiovascular: Regular Rate, Rhythm, No Edema, No Gallop, No JVD, No Murmur, Normal Peripheral Pulses Gastrointestinal: Normal Bowel Sounds, No Organomegaly, No Pulsatile Mass, Non Tender, Soft Back: Normal Inspection, No CVA Tenderness, No Vertebral Tenderness Extremity: Normal Capillary Refill, Normal Inspection, Normal Range of Motion, Non Tender, No Calf Tenderness, No Pedal Edema Neurologic/Psychiatric: Alert, Oriented x3, No Motor/Sensory Deficits, Normal Mood/Affect Skin: Normal Color, Warm/Dry Lymphatic: No Adenopathy Results Results/Procedures Labs Laboratory Tests 04/25/22 23:50 04/26/22 02:08 04/26/22 05:37 Patient resulted labs reviewed. Assessment/Plan Admission Diagnosis Assessment: OD on Excedrin (APAP/ASA) Plan: Appreciate EICU and Poison Control Admission Status: Observation Diagnosis/Problems Diagnosis/Problems (1) Drug overdose Status: Acute Qualifiers: Encounter type: initial encounter Injury intent: intentional self-harm Qualified Codes: T50.902A - Poisoning by unspecified drugs, medicaments and biological substances, intentional self-harm, initial encounter (2) Suicidal ideation Status: Acute SELMA MILLER DO Apr 26, 2022 06:17
--- NOTE | 2022-04-26 06:55 | Diagnostic Imaging Report ---
INDICATION: Overdose Frontal chest obtained at 1241 a.m. Heart and mediastinal silhouette are normal in appearance. The lungs are clear. There is no pneumothorax or pleural fluid IMPRESSION: Negative chest. Dictated by: Dictated on workstation # [id number]
[2022-04-26 07:19] LABS: POTASSIUM 3.5 MMOL/L (3.6-5.0)
[2022-04-26 07:21] LABS: CALCIUM 8.7 MG/DL (8.5-10.1)
[2022-04-26 07:22] LABS: TOTAL PROTEIN 6.8 GM/DL (6.4-8.2)
[2022-04-26 07:24] LABS: BILIRUBIN,TOTAL 0.2 MG/DL (0.1-1.0)
[2022-04-26 07:26] LABS: CREATININE SERUM 0.68 MG/DL (0.60-1.30)
[2022-04-26 07:28] LABS: SALICYLATE 29.7 MG/DL (5.0-20.0)
[2022-04-26] MEDS: POTASSIUM CL 10MEQ/50ML IVPB 50 ML IV SCH ×2 (08:36→09:51)
[2022-04-26] MEDS ORDERED: HYDROmorphone 2 MG/ML VIAL (DILAUDID) IVP PRN (10:15)
[2022-04-26] MEDS ORDERED: PROMETHAZINE INJ 25 MG/ML (PHENERGAN) AMP IM PRN (10:45)
[2022-04-26] MEDS: NS IV 1000 ML 1,000 ML IV SCH ×5 (11:25→23:52)
[2022-04-26] MEDS ORDERED: CATHETER FLUSH 10 ML SYR IVP PRN (18:00)
[2022-04-27 04:37] LABS: BASOPHILS # (AUTO) 0.1 10^3/uL (0.0-0.1); BASOPHILS % (AUTO) 1 % (0-10); EOSINOPHILS # (AUTO) 0.1 10^3/uL (0.0-0.3); EOSINOPHILS % (AUTO) 2 % (0-10); HEMATOCRIT 30 % (35-52); HEMOGLOBIN 9.2 g/dL (11.5-16.0); LYMPHOCYTES # (AUTO) 2.9 10^3/uL (1.0-4.0); LYMPHOCYTES % (AUTO) 49 % (12-44); MEAN CORPUSCULAR HEMOGLOBIN 25 pg (25-34); MEAN CORPUSCULAR HGB CONC 31 g/dL (32-36); MEAN CORPUSCULAR VOLUME 81 fL (80-99); MEAN PLATELET VOLUME 9.4 fL (9.0-12.2); MONOCYTES # (AUTO) 0.6 10^3/uL (0.0-1.0); MONOCYTES % (AUTO) 10 % (0-12); NEUTROPHILS # (AUTO) 2.3 10^3/uL (1.8-7.8); NEUTROPHILS % (AUTO) 38 % (42-75); PLATELET COUNT 191 10^3/uL (130-400)
[2022-04-27 04:59] LABS: PHOSPHORUS 2.8 MG/DL (2.3-4.7)
[2022-04-27] MEDS: NS IV 1000 ML 1,000 ML IV SCH (05:00)
[2022-04-27 05:01] LABS: MAGNESIUM 1.8 MG/DL (1.6-2.4)
[2022-04-27 05:26] LABS: POTASSIUM 3.4 MMOL/L (3.6-5.0)
[2022-04-27 05:31] LABS: CREATININE SERUM 0.62 MG/DL (0.60-1.30)
[2022-04-27] MEDS ORDERED: MAGNESIUM 1 GM/100 ML IVPB 100 ML IV SCH (06:00)
[2022-04-27] MEDS ORDERED: KCL 20 MEQ TAB (K-DUR) PO SCH (06:00)
[2022-04-27] MEDS ORDERED: POTASSIUM CL 10MEQ/50ML IVPB 50 ML IV SCH (06:00)
--- NOTE | 2022-04-27 06:07 | Progress Note - Hospitalist ---
Subjective HPI/CC On Admission Date Seen by Provider: Apr 27, 2022 Time Seen by Provider: 09:00 CC: Overdose on Excedrin HPI: This is a 41yoF who presented to the ER after overdosing on 30 Excedrin pills. Salicylate and Acetaminophen levels monitored per Poison Control with IV fluids and ICU monitoring. Those levels are decreasing and liver enzymes remain stable. Objective Exam Vital Signs Vital Signs Date Time Temp Pulse Resp B/P (MAP) Pulse Ox O2 Delivery O2 Flow Rate FiO2 04/27/22 08:45 04/27/22 08:23 96 Room Air 04/27/22 08:00 36.4 04/27/22 08:00 86 19 04/26/22 05:08 21 Capillary Refill : Less Than 3 Seconds Results/Procedures Lab Laboratory Tests 04/27/22 04:30 Patient resulted labs reviewed. Assessment/Plan Critical Care Critically Ill Patient Diagnosis/Problems Diagnosis/Problems (1) Drug overdose Status: Acute Qualifiers: Encounter type: initial encounter Injury intent: intentional self-harm Qualified Codes: T50.902A - Poisoning by unspecified drugs, medicaments and biological substances, intentional self-harm, initial encounter (2) Suicidal ideation Status: Acute GHASSAN CAT DO Apr 27, 2022 06:07
[2022-04-27] MEDS ORDERED: KCL 20 MEQ TAB (K-DUR) PO ONE (08:00)
--- NOTE | 2022-04-27 09:37 | Discharge Summary ---
Discharge Summary Hospital Course Was the Problem List Reviewed?: Yes Problems/Dx: (1) Drug overdose Status: Acute Qualifiers: Qualified Codes: T50.902A - Poisoning by unspecified drugs, medicaments and biological substances, intentional self-harm, initial encounter (2) Suicidal ideation Status: Acute Hospital Course Date of Admission: Apr 26, 2022 at 03:21 Admission Diagnosis : Family Physician/Provider: [facility] Date of Discharge: 04/27/22 Discharge Diagnosis: Excedrin overdose Hospital Course: Patient had an uneventful hospital course after she was admitted after purposely taking 30 Excedrin. Salicylate and Tylenol came back to nontoxic level and she denied any type of suicidal ideation she left AMA Labs and Pending Lab Test: Laboratory Tests 04/27/22 04:30: White Blood Count 6.0, Red Blood Count 3.72L, Hemoglobin 9.2L, Hematocrit 30L, Mean Corpuscular Volume 81, Mean Corpuscular Hemoglobin 25, Mean Corpuscular Hemoglobin Concent 31L, Red Cell Distribution Width 17.5H, Platelet Count 191, Mean Platelet Volume 9.4, Immature Granulocyte % (Auto) 0, Neutrophils (%) (Auto) 38L, Lymphocytes (%) (Auto) 49H, Monocytes (%) (Auto) 10, Eosinophils (%) (Auto) 2, Basophils (%) (Auto) 1, Neutrophils # (Auto) 2.3, Lymphocytes # (Auto) 2.9, Monocytes # (Auto) 0.6, Eosinophils # (Auto) 0.1, Basophils # (Auto) 0.1, Immature Granulocyte # (Auto) 0.0, Sodium Level 139, Potassium Level 3.4L, Chloride Level 113H, Carbon Dioxide Level 17L, Anion Gap 9, Blood Urea Nitrogen 4L, Creatinine 0.62, Estimat Glomerular Filtration Rate 116, BUN/Creatinine Ratio 6, Glucose Level 99, Calcium Level 8.0L, Phosphorus Level 2.8, Magnesium Level 1.8 Home Meds Active No Active Prescriptions or Reported Medications Assessment/Pt Instructions Left AMA Discharge Planning: <30 minutes discharge planning Discharge Physical Examination Vital Signs Vital Signs Date Time Temp Pulse Resp B/P (MAP) Pulse Ox O2 Delivery O2 Flow Rate FiO2 04/27/22 08:45 04/27/22 08:23 96 Room Air 04/27/22 08:00 36.4 04/27/22 08:00 86 19 04/26/22 05:08 21 Allergies: Coded Allergies: morphine (Unverified Allergy, Mild, 04/23/09) Discharge Summary Date of Admission Apr 26, 2022 at 03:21 Date of Discharge Apr 27, 2022 at 08:45 Admission Diagnosis Assessment: OD on Excedrin (APAP/ASA) Plan: Appreciate EICU and Poison Control Discharge Diagnosis (1) Drug overdose Status: Acute Qualifiers: Qualified Codes: T50.902A - Poisoning by unspecified drugs, medicaments and biological substances, intentional self-harm, initial encounter (2) Suicidal ideation Status: Acute GHASSAN CAT DO Apr 27, 2022 09:36
== END 2022-04-27 08:45 | disposition left against medical advice (07) ==
LOC: EDUNIT# 23:43 → ER 23:45 → ICU 23:46 → UNDOADMOB 04-26 03:21 → UNDODISOB 04-27 08:45
PROVIDERS: ADMIT Internal Medicine; ATTEND Internal Medicine
DX: T50.902A Poisoning by unspecified drugs, medicaments and biological substances, intentional self-harm, initial encounter (principal); R45.851 Suicidal ideations; F17.210 Nicotine dependence, cigarettes, uncomplicated
CPT/HCPCS: 71045; 80048 ×2; 80053; 80306; 81000; 82805; 83735 ×2; 84100; 84703; 85007; 85025 ×2; 85027; 85610; 93005; 96361 ×2; 96365; 96366; 96372; 96374; 96376; 99291; G0378; G0480 ×3; 36415; 80320; 80329